=== PATIENT | female | born 1985 | race African-American/Black ===

== ENCOUNTER 2016-11-17 01:07 | Emergency (ER) | payer OTHER ==
[~2016-11-17] VITALS: Ht 152.4 cm; Wt 71.0 kg
[~2016-11-17 01:07] MED LIST: IBUP600 PO; OSEL75 PO; OXYC1SOL5 PO
[2016-11-17 01:09] VITALS: BP 113/65; PULSE 83; RESP 16; TEMP 97.7; O2SAT 98
[2016-11-17] MEDS ORDERED: ALBU6.7H INH (01:36)
[2016-11-17] MEDS ORDERED: ZITH250T PO (01:36)
[2016-11-17] MEDS ORDERED: PRED-503 PO (01:36)
--- NOTE | 2016-11-17 01:40 | PD ---
HPI Chief Complaint: Cold / Flu Symptoms Time Seen by Provider: 01:37 Travel History International Travel<30 days: No Contact w/Intl Traveler<30days: No Traveled to known affect area: No History of Present Illness HPI 31-year-old black female presents to emergency Department with complaints of coughing congestion 1 week. She states that she felt subjectively warm. She does complain of headache, ear pain, sore throat, pleuritic chest wall pain, shortness of breath, wheezing, myalgias, arthralgias and general malaise. She had some nausea and some posttussive emesis. Some loose stools but no abdominal pain. No dysuria or frequency. Patient states that she has had the flu shot. PFSH Past Medical History Anemia: Yes Diminished Hearing: No Tetanus Vaccination: < 5 Years ?: Not LMP: LAST WEEK : 1 Para: 1 Past Surgical History Section: Yes Oral Surgery: Yes (WISDOM TEETH) Other Surgery: Yes (BREAST REDUCTION) Social History Alcohol Use: Yes Tobacco Use: Yes Substance Use: No Allergies-Medications (Allergen,Severity, Reaction): Coded Allergies: No Known Allergies (Unverified , 11/17/16) Reported Meds & Prescriptions Reported Meds & Active Scripts Active Tamiflu 75 mg (Oseltamivir Phosphate) 75 Mg Cap 75 Mg PO Q12HR 5 Days Oxycodone/Acetaminophen 5 mg/325 mg 1 Tab Tab 2 Tab PO Q4H Motrin 600 Mg Tab (Ibuprofen) 600 Mg Tab 600 Mg PO Q6H Review of Systems Except as stated in HPI: all other systems reviewed are Neg Physical Exam Narrative GENERAL: Well-developed, well-nourished in no acute distress. Nontoxic appearing. HEAD: Normocephalic, atraumatic. EYES: Pupils equal round and reactive. Extraocular motions intact. No scleral icterus. No injection or drainage. ENT: TMs clear without erythema. The external auditory canals clear. Nose: clear . Posterior pharynx is pink and moist. No tonsillar edema or exudate. Uvula midline. Airway patent. NECK: Trachea midline.Supple, nontender, moves head freely. No central bony tenderness or spasm. CARDIOVASCULAR: Regular rate and rhythm without murmurs, gallops, or rubs. RESPIRATORY: Few scattered rhonchi with occasional fine x-ray wheeze. No Rales. No respiratory distress. Speaks in full and complete sentences. GASTROINTESTINAL: Abdomen soft, non-tender, nondistended. No hepato-splenomegaly , or palpable masses. No guarding. EXTREMITIES: No clubbing, cyanosis, or edema. No joint tenderness, effusion, or edema noted. BACK: Nontender without deformity or crepitance. No flank tenderness. Data Data Last Documented VS Vital Signs Date Time Temp Pulse Resp B/P Pulse Ox O2 Delivery O2 Flow Rate FiO2 11/17/16 01:09 97.7 83 16 113/65 98 Room Air Orders Azithromycin (Zithromax) (11/17/16 01:45) Prednisone (Deltasone) (11/17/16 01:45) MDM Medical Decision Making Medical Screen Exam Complete: Yes Emergency Medical Condition: Yes Medical Record Reviewed: Yes Differential Diagnosis MDM: High Differential diagnoses: Pneumonia, bronchitis, URI, asthma, RAD, asthmatic bronchitis Narrative Course Patient is given Zithromax 500 mg and prednisone 40 mg by mouth. This is asthmatic bronchitis Diagnosis Primary Impression: Asthmatic bronchitis Patient Instructions: General Instructions Departure Forms: Tests/Procedures, Work Release Special Instructions: No work 3 days. Additional Instructions: Rest. Increase fluids. Tylenol and Advil. Robitussin-DM. Zithromax, prednisone, and albuterol. Followup with your Dr. in one week. Return to the ER for any problems. Med/Other Pt SpecificInfo: Prescription(s) given Scripts Albuterol 6.7 GM Inh (Proventil Hfa 6.7 GM Inh)90 Mcg/Act Aer2 Puff INH Q4-6H PRN (SHORTNESS OF BREATH) #1 INHALER Prov:Janell Carroll MD 11/17/16 Prednisone (Deltasone)20 Mg Tab20 Mg PO TID #15 TAB Prov:Janell Carroll MD 11/17/16 Azithromycin (Zithromax)250 Mg [id number] Mg PO DIRECTED #6 TAB Take 2 tabs (500 mg) on day 1 then 1 tab daily x 4 days. Prov:Janell Carroll MD 11/17/16 Disposition: 01 DISCHARGE HOME Condition: Stable Moses John Nov 17, 2016 01:40
[2016-11-17] MEDS ORDERED: predniSONE 20 MG TAB PO ONE (01:45)
[2016-11-17] MEDS ORDERED: AZITHROMYCIN 250 MG TAB PO ONE (01:45)
== END 2016-11-17 02:40 | disposition home or self-care (01) ==
LOC: NEPB 01:07
DX: J45.909 Unspecified asthma, uncomplicated (principal); H92.09 Otalgia, unspecified ear; R51 Headache; J02.9 Acute pharyngitis, unspecified; R11.2 Nausea with vomiting, unspecified; D64.9 Anemia, unspecified; Z72.0 Tobacco use
CPT/HCPCS: 99283; J7512

== ENCOUNTER 2018-02-20 00:56 | Emergency (ER) | payer SELFPAY, OTHER ==
[2018-02-20] MEDS ORDERED: SODIUM CHLORIDE 0.9% FLUSH 10 ML FLUSH IVF (01:30)
[2018-02-20] MEDS: DEXAMETHASONE SOD PHOS 4 MG/ML VIAL IV PUSH (01:42)
[2018-02-20 01:50] LABS: AUTOMATED NEUTROPHIL # 9.1 TH/MM3 (1.8-7.7); BASOPHIL # 0.1 TH/MM3 (0-0.2); BASOPHIL % 0.5 % (0.0-2.0); EOSINOPHIL # 0.2 TH/MM3 (0-0.4); EOSINOPHIL % 1.6 % (0.0-4.0); HEMATOCRIT 38.3 % (35.0-46.0); HEMO FLAGS DIFF FINAL; HEMOGLOBIN 13.4 GM/DL (11.6-15.3); LYMPH % 18.7 % (9.0-44.0); LYMPHOCYTE # 2.5 TH/MM3 (1.0-4.8); MEAN CELL VOLUME 95.5 FL (80.0-100.0); MEAN CORPUSCULAR HEMOGLOBIN 33.4 PG (27.0-34.0); MEAN PLATELET VOLUME 8.3 FL (7.0-11.0); MONOCYTE # 1.5 TH/MM3 (0-0.9); NEUT % 68.2 % (16.0-70.0); PLATELET COUNT 288 TH/MM3 (150-450); RED BLOOD COUNT 4.01 MIL/MM3 (4.00-5.30); RED CELL DISTRIBUTION WIDTH 13.9 % (11.6-17.2); WHITE BLOOD COUNT 13.4 TH/MM3 (4.0-11.0)
[2018-02-20] MEDS: IOHEXOL 350 MG/ML 10 ML VIAL (for RAD DIAG) IVCONTRAST (01:50)
[2018-02-20 02:08] LABS: ANION GAP 8 MEQ/L (5-15); BICARBONATE 26.3 MEQ/L (21.0-32.0); BLOOD UREA NITROGEN 9 MG/DL (7-18); CALCIUM 8.9 MG/DL (8.5-10.1); CHLORIDE 107 MEQ/L (98-107); CREATININE 0.88 MG/DL (0.50-1.00); GLOMERULAR FILTRATION RATE 90 ML/MIN (>89); GLUCOSE,RANDOM 80 MG/DL (74-106); POTASSIUM 3.8 MEQ/L (3.5-5.1); SODIUM (NA) 141 MEQ/L (136-145)
[2018-02-20] MEDS: AMOXICILLIN 875 MG TAB PO (03:00)
[2018-02-20] MEDS: IBUPROFEN 800 MG TAB PO (03:01)
== END 2018-02-20 03:03 | disposition home or self-care (01) ==
LOC: NEPD 00:56
DX: J02.0 Streptococcal pharyngitis (principal); B95.0 Streptococcus, group A, as the cause of diseases classified elsewhere; Z72.0 Tobacco use
CPT/HCPCS: 70491; 80048; 85025; 87880; 96374; 99284-25